=== PATIENT | female | born 1995 | race Caucasian/White ===

== ENCOUNTER 2017-09-28 23:55 | Emergency (ER) | payer MEDICAID ==
[~2017-09-28] VITALS: Ht 152.4 cm; Wt 95.0 kg
[~2017-09-28 23:55] MED LIST: AUGM500T7 PO; Docusate Sod/Senna PO; IBUP600 PO; PRENCAP6 PO; ZOFR4TAB3 SL
[2017-09-29 00:03] VITALS: BP 134/85; PULSE 89; RESP 18; TEMP 98.2; O2SAT 100
[2017-09-29] MEDS ORDERED: TETRACAINE 0.5% OPTH SOLN 2 ML BTL EACH EYE ONE (00:30)
[2017-09-29] MEDS ORDERED: PROPARACAINE HCL 0.5% OPHT SOLN 15 ML BTL EACH EYE ONE (00:45)
--- NOTE | 2017-09-29 00:51 | PD ---
HPI Chief Complaint: Eye Problems/Injury Time Seen by Provider: 00:09 Travel History International Travel<30 days: No Contact w/Intl Traveler<30days: No Traveled to known affect area: No History of Present Illness HPI 22-year-old female came to the emergency room with history of right eye irritation, watering and foreign body sensation for past 1 hour. Patient says she was in a car and they were driving back home when along with the way and she felt something go inside her eye. This was her right eye and since then the eye has been quite irritated. She feels like it has been scratched her there might be something in it. She went home and took a shower and try to rinse arrived but has not felt better. It has been tearing as well. No history of blunt trauma. Vision is intact. She is otherwise a healthy person. She does not wear contact lens. [facility] Past Medical History Narrative Medical List of her past medical, surgical, social and family history is reviewed from the nursing note Asthma: Yes Diminished Hearing: No Tetanus Vaccination: Unknown Influenza Vaccination: No ?: Not LMP: 09/16/2017 : 1 Para: 1 Past Surgical History Surgical History: No Previous Surgery Social History Alcohol Use: No Tobacco Use: No Substance Use: No Allergies-Medications (Allergen,Severity, Reaction): Coded Allergies: No Known Allergies (Unverified Adverse Reaction, Unknown, 09/29/17) Comments No known drug allergies Reported Meds & Prescriptions Reported Meds & Active Scripts Active Augmentin 500MG/125MG (Amoxicillin/Clavulanate Potassium) 500 Mg Tab 500 Mg PO Q12H Zofran ODT (Ondansetron HCl) 4 Mg Tab 4 Mg SL Q6H PRN FOR NAUSEA/VOMITING Motrin 600 Mg Tab (Ibuprofen) 600 Mg Tab 600 Mg PO Q6H PRN [Docusate Sod/Senna] 1 TAB Tab 2 Tab PO Q12H PRN Reported 1 ( Multivitamins) Cap 1 Cap PO DAILY Narrative Medication List of her home medications reviewed from the nursing note. Review of Systems Except as stated in HPI: all other systems reviewed are Neg Eyes: Positive: Foreign Body Sensation Physical Exam Narrative GENERAL: Awake, alert, moderate to SKIN: Focused skin assessment warm/dry. HEAD: Atraumatic. Normocephalic. EYES: Pupils equal and round. No scleral icterus. Right eye injected. Cornea appears to be clear and pupil is round, regular and reactive to light. The upper eyelid and lower eyelids were everted and no foreign body was noticed. ENT: No nasal bleeding or discharge. Mucous membranes pink and moist. NECK: Trachea midline. No JVD. CARDIOVASCULAR: Regular rate and rhythm. No murmur appreciated. RESPIRATORY: No accessory muscle use. Clear to auscultation. Breath sounds equal bilaterally. GASTROINTESTINAL: Abdomen soft, non-tender, nondistended. Hepatic and splenic margins not palpable. MUSCULOSKELETAL: No obvious deformities. No clubbing. No cyanosis. No edema. NEUROLOGICAL: Awake and alert. No obvious cranial nerve deficits. Motor grossly within normal limits. Normal speech. PSYCHIATRIC: Appropriate mood and affect; insight and judgment normal. Data Data Last Documented VS Vital Signs Date Time Temp Pulse Resp B/P (MAP) Pulse Ox O2 Delivery O2 Flow Rate FiO2 09/29/17 00:03 98.2 89 18 134/85 (101) 100 Orders Orders Tetracaine 0.5% Opht Soln (Pontocaine 0. (09/29/17 00:30) Proparacaine 0.5% Opth Soln (Alcaine 0.5 (09/29/17 00:45) Ed Discharge Order (09/29/17 00:50) MDM Medical Decision Making Medical Screen Exam Complete: Yes Emergency Medical Condition: Yes Medical Record Reviewed: Yes Differential Diagnosis Corneal abrasion, foreign body Narrative Course 12:55 AM based on the floor seen test being negative have decided to discharge her home on erythromycin ointment. The first application was done here. I have asked her to follow-up with ophthalmology if symptoms do not improve by morning. Procedures Procedure Narrative Fluorescein test for the eye: Proparacaine eyedrop was instilled into the right eye to achieve local anesthesia. Fluorescein strip was used to stain the eye. Was lamp was used to look for corneal abrasion. No corneal abrasion was noticed. Patient tolerated the procedure well. EKG Prior to Arrival: No Diagnosis Primary Impression: Irritation of right eye Referrals: Tanya Henriquez MD 1 day Additional Instructions: Use the ointment twice a day. If the symptoms do not improve follow-up with the electroslag welding machine operator in the morning. Return to the ER if condition worsens or any other new concerns. Disposition: 01 DISCHARGE HOME Condition: Stable Marcy Munoz MD September 29, 2017 00:51
[2017-09-29] MEDS ORDERED: ERYTHROMYCIN 0.5% OPTH OINT 3.5 GM TUBO RIGHT EYE ONE (01:00)
== END 2017-09-29 02:05 | disposition home or self-care (01) ==
LOC: NEPD 23:55
DX: H57.9 Unspecified disorder of eye and adnexa (principal); J45.909 Unspecified asthma, uncomplicated; Z79.899 Other long term (current) drug therapy
CPT/HCPCS: 99283